=== PATIENT | female | born 2000 | race Caucasian/White ===

== ENCOUNTER 2021-11-20 15:34 | Emergency (ER) | payer OTHER, SELFPAY ==
[2021-11-20 15:35] VITALS: BP 134/90; PULSE 89; RESP 18; TEMP 37.4; O2SAT 99; BMI 24.9
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
--- NOTE | 2021-11-20 17:04 | PC.NURSE ---
ED MD speaking with patient
[2021-11-20 17:19] VITALS: BP 126/88; PULSE 90; RESP 16; TEMP 37.4; O2SAT 99
== END 2021-11-20 17:20 | disposition home or self-care (01) ==
PROVIDERS: Emergency Provider Emergency Medicine; PCP Family Medicine
DX: Z03.89 Encounter for observation for other suspected diseases and conditions ruled out (principal); V43.61XA Car passenger injured in collision with sport utility vehicle in traffic accident, initial encounter
CPT/HCPCS: 99282